=== PATIENT | male | born 1995 | race Caucasian/White ===

== ENCOUNTER 2017-08-14 16:38 | Emergency (ER) | payer BC ==
[2017-08-14 16:56] VITALS: RESP 18; TEMP 98.4
--- NOTE | 2017-08-14 17:45 | EDPHY ---
H & P Smoking Status: Current every day smoker Time Seen by Provider: 08/14/17 17:30 HPI/ROS: CHIEF COMPLAINT: Right 3rd and 4th digit injury HISTORY OF PRESENT ILLNESS: 21-year-old immunocompetent male states that on July 25 he has slammed his right 3rd and 4th distal phalanx into a car door. He subsequently seen at emergency department [place] where he had sutures placed, x-rays. On 08/09/2017 the wound partially dehisced however did not seek medical attention. Today he went to [place] urgent care and was given an IM dose of Ancef and referred to the ER for further evaluation. PHYSICAL EXAM (Prior to examination, patient consented to physical exam, hands were washed and my usual and customary physical exam procedures followed) 1) GENERAL: Well-developed, well-nourished, alert and oriented. Appears to be in no acute distress. 2) HEAD: Normocephalic 3) HEENT: sclera anicteric 4) LUNGS: Breathing comfortably. 5) SKIN: Right 3rd and 4th digit dried blood, 3rd digit has flap tissue which appears partially viable. No fetid odor. 6) MUSCULOSKELETAL: Right 3rd and 4th digit dried blood . Negative kanavel. (Aliya Sampson) Constitutional: Initial Vital Signs Temperature (C) 36.9 C 08/14/17 16:54 Heart Rate 92 08/14/17 16:54 Respiratory Rate 18 08/14/17 16:54 Blood Pressure 120/68 08/14/17 16:54 O2 Sat (%) 98 08/14/17 16:54 O2 Delivery Mode Room Air Allergies/Adverse Reactions: peanuts Allergy (Severe, Uncoded 08/14/17 16:53) Anaphylaxis Home Medications: Medication Instructions Recorded Cephalexin [Keflex] 500 mg PO TID 7 Days cap 08/14/17 lamoTRIgine [LamICTAL] 25 mg PO 08/14/17 MDM/Departure - MDM Imaging Results: Imaging Impressions Hand X-Ray 08/14/17 17:52 Impression: 1. Transverse nondisplaced fracture distal tuft right fourth finger. 2. Soft tissue swelling over the distal phalanx of the right first finger. . Images reviewed myself (Aliya Sampson) Medications Given: Discontinued Medications Hydrogen Peroxide (Hydrogen Peroxide) 1 jae TP EDNOW ONE Stop: 08/14/17 17:51 Last Admin: 08/14/17 18:07 Dose: Not Given ED Course/Re-evaluation: 18:50 Examined this patient at the request of FADIA Guallpa. I concur with his exam and plan. He will consult with hand surgeon network communications engineer. (Chris Powell) 5:50 p.m.: I evaluated the patient's medical records from [facility] in [place] noting a nondisplaced fracture of the distal phalanx of the right 4th digit. At this time the patient sutures are in place. Plan will be cleaning of the wound,, x-ray removal sutures and re-evaluation. 6:58 p.m.: I consulted with on-call hand surgery Dr. Hima Granados, texted him photos of the patient's injury without identifying information on photos. Today is Thursday night. He recommends the patient follow up in the office on Thursday for further evaluation possible wound debridement but does not feel that this needs to be done emergently. Recommend oral antibiotics. He also recommended that the patient continue to clean area himself gently with Q-Tips and hydrogen peroxide. The extent of the sutures that can be visualized were removed by myself in the ER . (Aliya Sampson) - Depart Disposition: Home, Routine, Self-Care Clinical Impression: Closed fracture of tuft of distal phalanx of finger Condition: Good Instructions: Finger Laceration (ED) Additional Instructions: Return to the ER immediately if you experience discoloration, have worsening pain, numbness, tingling, or any other symptoms that concern you. If you received x-rays in the emergency department today, be advised, that ligamentous , tendon, muscular, and other non-bony injury cannot be fully ruled out. Try to keep your affected extremity elevated above the level of your chest, and keep cold packs on the affected area, for the next 48 hours. Clean the area twice daily Prescriptions: Cephalexin [Keflex] 500 mg PO TID 7 Days cap Referrals: Alphonse Granados MD [Medical Doctor] - As per Instructions
[2017-08-14] MEDS ORDERED: HYDROGEN PEROXIDE 473 ML BOTTLE TP ONE (17:50)
[2017-08-14 19:29] VITALS: BP 139/92; PULSE 65; O2SAT 97
== END 2017-08-14 19:27 | disposition home or self-care (01) ==
DX: S62.664A Nondisplaced fracture of distal phalanx of right ring finger, initial encounter for closed fracture (principal); F17.200 Nicotine dependence, unspecified, uncomplicated; Z91.010 Allergy to peanuts; W23.1XXA Caught, crushed, jammed, or pinched between stationary objects, initial encounter